=== PATIENT | male | born 1980 | race Caucasian/White ===

== ENCOUNTER 2022-07-02 17:53 | Emergency (ER) | payer SELFPAY ==
[2022-07-02 22:27] LABS: ESTIMATED GFR 86 mL/min (>60)
[2022-07-02 22:30] LABS: ACETAMINOPHEN 0 ug/mL (10-30)
== END 2022-07-03 01:00 ==
LOC: JD.ED 17:53
DX: F22 Delusional disorders (principal); Z20.822 Contact with and (suspected) exposure to COVID-19
CPT/HCPCS: 36415; 80053; 80143; 80179; 80307; 84443; 85007; 85027; 99285; U0002